=== PATIENT | female | born 1965 | race Caucasian/White ===

== ENCOUNTER 2017-03-30 17:02 | Inpatient (IN) | payer OTHER ==
[~2017-03-30] VITALS: Ht 165.1 cm; Wt 135.6 kg
[2017-03-30 17:12] VITALS: BP_SYST 138
[2017-03-30 18:09] LABS: HEMATOCRIT 48.6 % (36-48); HEMOGLOBIN 15.4 g/dL (12.0-16.0); MEAN CORPUSCULAR HEMOGLOBIN 27 pg (27-31); MEAN CORPUSCULAR HGB CONC 32 % (32-36); MEAN CORPUSCULAR VOLUME 85 fL (79.0-98.0); PLATELET COUNT (AUTO) 268 K/uL (130-430); RED BLOOD CELL COUNT(AUTO) 5.74 MIL/uL (4.2-6.2); RED CELL DISTRIBUTION WIDTH 15.5 % (9.0-15.0)
[2017-03-30 18:14] LABS: WHITE BLOOD COUNT (AUTO) 30.2 K/uL (4.8-10.8)
[2017-03-30] MEDS ORDERED: VANCOMYCIN HCL 1,000 MG in D5W 250 ML IV ONE (18:15)
[2017-03-30] MEDS ORDERED: ONDANSETRON HCL 4 MG/2 ML VIAL IVP ONE (18:15)
[2017-03-30] MEDS ORDERED: NS 1000 ML BAG IV ONE (18:15)
[2017-03-30] MEDS ORDERED: PIPERACILLIN/TAZO 3.38 GM in D5W 50 ML IV ONE (18:15)
[2017-03-30] MEDS ORDERED: MORPHINE 4 MG/ML INJ. SYRINGE IVP ONE (18:15)
[2017-03-30] MEDS ORDERED: PIPERACILLIN/TAZO 3.375 GM in D5W 50 ML IV ONE (18:20)
[2017-03-30 18:23] LABS: CALCIUM 9.4 mg/dL (8.4-11.0); CREATININE 0.96 mg/dL (0.55-1.30); POTASSIUM 4.1 mmol/L (3.5-5.1)
[2017-03-30 18:27] LABS: PROTHROMBIN TIME 10.9 SECS (9.5-12.5)
[2017-03-30] MEDS ORDERED: MORPHINE 4 MG/ML INJ. SYRINGE ONE (18:29)
[2017-03-30 18:35] LABS: TOTAL BILIRUBIN 0.6 mg/dL (0.0-1.0)
[2017-03-30 18:36] LABS: ALBUMIN 3.9 g/dL (3.4-4.8); TOTAL PROTEIN, SERUM 8.5 g/dL (6.4-8.3)
[2017-03-30 18:56] LABS: ATYPICAL LYMPHOCYTES % 0 % (0-0); BAND % (MANUAL) 13 % (0-6); BASOPHILS % (MANUAL) 0 % (0-2); EOSINOPHILS % (MANUAL) 0 % (0-7); LYMPHOCYTES % (MANUAL) 7 % (20-46); MONOCYTES % (MANUAL) 5 % (0-11)
[2017-03-30] MEDS ORDERED: GLIM2TAB2 PO (19:45)
[2017-03-30] MEDS ORDERED: GLU500 PO (19:45)
[2017-03-30] MEDS ORDERED: DEXTROSE 50% JECT 50 ML DISP.SYRIN IVP PRN (21:15)
[2017-03-30] MEDS: PIPERACILLIN/TAZO 3.375/DEX-IS 50 ML IV SCH (21:15)
[2017-03-30] MEDS ORDERED: ACETAMINOPHEN 325 MG TABLET PO PRN (21:15)
[2017-03-30 21:42] VITALS: BP_SYST 111
[2017-03-30] MEDS: NACL 0.9% 1,000 ML IV SCH (22:05)
[2017-03-30] MEDS: PIPERACILLIN/TAZOBACTAM 3.375 GM/VIAL (ZOSYN) IV ONE (23:54)
[2017-03-31] VITALS: BP_SYST 125
[2017-03-31] MEDS: PIPERACILLIN/TAZOBACTAM 3.375 GM/VIAL (ZOSYN) IV ONE (00:12)
[2017-03-31] MEDS: TEMAZEPAM 15 MG CAPSULE PO PRN ×2 (00:27→22:44)
[2017-03-31 04:00] VITALS: BP_SYST 118
[2017-03-31] MEDS: MORPHINE 2 MG/ML INJ. SYRINGE IVP PRN ×3 (04:35→20:44)
[2017-03-31] MEDS: PIPERACILLIN/TAZO 3.375/DEX-IS 50 ML IV SCH ×4 (06:03→17:05)
[2017-03-31] MEDS: INSULIN REGULAR, HUMAN 100 UNITS/ML, 10 ML VIAL (novoLIN R) SUBCUT PRN ×2 (06:14→12:22)
[2017-03-31 07:20] LABS: BASOPHILS % (AUTO) 0.2 % (0.0-2.0); EOSINOPHILS % (AUTO) 0.1 % (0.0-4.0); HEMATOCRIT 37.2 % (36-48); HEMOGLOBIN 12.4 g/dL (12.0-16.0); LYMPHOCYTES # (AUTO) 1.2 K/uL (1.0-5.5); LYMPHOCYTES % (AUTO) 7.2 % (20.5-51.5); MEAN CORPUSCULAR HEMOGLOBIN 29 pg (27-31); MEAN CORPUSCULAR HGB CONC 34 % (32-36); MEAN CORPUSCULAR VOLUME 85 fL (79.0-98.0); MONOCYTES # (AUTO) 0.5 K/uL (0.0-1.0); MONOCYTES % (AUTO) 3.2 % (1.7-9.3); NEUTROPHILS # (AUTO) 15.4 K/uL (1.8-7.7); NEUTROPHILS % (AUTO) 89.3 % (40.0-70.0); PLATELET COUNT (AUTO) 188 K/uL (130-430); RED BLOOD CELL COUNT(AUTO) 4.37 MIL/uL (4.2-6.2); RED CELL DISTRIBUTION WIDTH 14.9 % (9.0-15.0)
[2017-03-31 07:22] LABS: ALBUMIN 2.8 g/dL (3.4-4.8); CREATININE 0.81 mg/dL (0.55-1.30); POTASSIUM 3.9 mmol/L (3.5-5.1); TOTAL BILIRUBIN 0.6 mg/dL (0.0-1.0); TOTAL PROTEIN, SERUM 6.5 g/dL (6.4-8.3)
[2017-03-31 07:24] LABS: WHITE BLOOD COUNT (AUTO) 17.1 K/uL (4.8-10.8)
[2017-03-31 08:00] VITALS: BP_SYST 110
[2017-03-31] MEDS: GLIMEPIRIDE 2 MG TABLET PO SCH ×2 (08:46→20:44)
[2017-03-31] MEDS: NACL 0.9% 1,000 ML IV SCH ×2 (08:47→20:48)
[2017-03-31] MEDS ORDERED: ONDANSETRON HCL 4 MG/2 ML VIAL IVP PRN (10:15)
[2017-03-31] MEDS: VANCOMYCIN HCL 1,500 MG in NS 250 ML IV SCH ×2 (12:18→22:43)
[2017-03-31 13:08] VITALS: BP_SYST 118
[2017-03-31 18:37] VITALS: BP_SYST 116
[2017-03-31 20:00] VITALS: BP_SYST 106
[2017-04-01] VITALS (8 sets, daily range): BP systolic 99–122
[2017-04-01] MEDS: INSULIN REGULAR, HUMAN 100 UNITS/ML, 10 ML VIAL (novoLIN R) SUBCUT PRN ×3 (00:23→17:31)
[2017-04-01] MEDS: AMPICILLIN SODIUM/SULBACTAM NA 3 GM in NS 100 ML IV SCH ×4 (00:27→17:21)
[2017-04-01] MEDS: MORPHINE 4 MG/ML INJ. SYRINGE IVP PRN ×4 (02:28→23:53)
[2017-04-01] MEDS: NACL 0.9% 1,000 ML IV SCH ×3 (03:15→23:15)
[2017-04-01] MEDS: GLIMEPIRIDE 2 MG TABLET PO SCH ×2 (08:11→20:48)
[2017-04-01] MEDS: VANCOMYCIN HCL 1,500 MG in NS 250 ML IV SCH (11:29)
[2017-04-01] MEDS ORDERED: BISACODYL 5 MG TABLET.DR (DULCOLAX) PO ONE (12:45)
[2017-04-02] MEDS: VANCOMYCIN HCL 1,500 MG in NS 250 ML IV SCH ×3 (00:01→22:29)
[2017-04-02] MEDS: AMPICILLIN SODIUM/SULBACTAM NA 3 GM in NS 100 ML IV SCH ×4 (00:02→18:06)
[2017-04-02] MEDS: TEMAZEPAM 15 MG CAPSULE PO PRN ×2 (00:03→22:30)
[2017-04-02 04:11] VITALS: BP_SYST 105
[2017-04-02] MEDS: INSULIN REGULAR, HUMAN 100 UNITS/ML, 10 ML VIAL (novoLIN R) SUBCUT PRN ×2 (06:45→23:24)
[2017-04-02 07:18] LABS: BASOPHILS % (AUTO) 0.4 % (0.0-2.0); EOSINOPHILS # (AUTO) 0.1 K/uL (0.0-0.4); EOSINOPHILS % (AUTO) 1.6 % (0.0-4.0); HEMATOCRIT 36.2 % (36-48); HEMOGLOBIN 11.9 g/dL (12.0-16.0); LYMPHOCYTES # (AUTO) 1.5 K/uL (1.0-5.5); LYMPHOCYTES % (AUTO) 17.9 % (20.5-51.5); MEAN CORPUSCULAR HEMOGLOBIN 28 pg (27-31); MEAN CORPUSCULAR HGB CONC 33 % (32-36); MEAN CORPUSCULAR VOLUME 86 fL (79.0-98.0); MONOCYTES # (AUTO) 0.7 K/uL (0.0-1.0); MONOCYTES % (AUTO) 8.3 % (1.7-9.3); NEUTROPHILS # (AUTO) 5.9 K/uL (1.8-7.7); NEUTROPHILS % (AUTO) 71.8 % (40.0-70.0); PLATELET COUNT (AUTO) 165 K/uL (130-430); RED BLOOD CELL COUNT(AUTO) 4.23 MIL/uL (4.2-6.2); RED CELL DISTRIBUTION WIDTH 15.4 % (9.0-15.0); WHITE BLOOD COUNT (AUTO) 8.3 K/uL (4.8-10.8)
[2017-04-02 07:26] LABS: ALBUMIN 2.5 g/dL (3.4-4.8); CALCIUM 8.3 mg/dL (8.4-11.0); CREATININE 0.62 mg/dL (0.55-1.30); POTASSIUM 4.1 mmol/L (3.5-5.1); TOTAL BILIRUBIN 0.3 mg/dL (0.0-1.0); TOTAL PROTEIN, SERUM 6.6 g/dL (6.4-8.3)
[2017-04-02 09:00] VITALS: BP_SYST 124
[2017-04-02] MEDS: NACL 0.9% 1,000 ML IV SCH ×2 (09:08→23:19)
[2017-04-02] MEDS: GLIMEPIRIDE 2 MG TABLET PO SCH ×2 (09:08→22:30)
[2017-04-02 12:00] VITALS: BP_SYST 117
[2017-04-02 18:34] VITALS: BP_SYST 115
[2017-04-02 20:00] VITALS: BP_SYST 141
[2017-04-02] MEDS: MORPHINE 2 MG/ML INJ. SYRINGE IVP PRN (23:25)
[2017-04-02 23:46] VITALS: BP_SYST 114
[2017-04-03] MEDS: AMPICILLIN SODIUM/SULBACTAM NA 3 GM in NS 100 ML IV SCH ×2 (00:17→05:54)
[2017-04-03 04:17] VITALS: BP_SYST 112
[2017-04-03] MEDS: INSULIN REGULAR, HUMAN 100 UNITS/ML, 10 ML VIAL (novoLIN R) SUBCUT PRN (06:03)
[2017-04-03] MEDS: NACL 0.9% 1,000 ML IV SCH (06:15)
[2017-04-03 08:21] VITALS: BP_SYST 134
[2017-04-03] MEDS: GLIMEPIRIDE 2 MG TABLET PO SCH (09:25)
[2017-04-03 11:44] VITALS: BP_SYST 137
[2017-04-03 13:05] VITALS: BP_SYST 137
== END 2017-04-03 12:50 | disposition home or self-care (01) | DRG 872 ==
LOC: SED 17:02 → SMU 19:44
PROVIDERS: ADMIT Internal Medicine Hospice and Palliative Medicine; ATTEND Internal Medicine Hospice and Palliative Medicine
DX: A41.9 Sepsis, unspecified organism (principal); L03.116 Cellulitis of left lower limb; Z68.42 Body mass index [BMI] 45.0-49.9, adult; E11.9 Type 2 diabetes mellitus without complications; E66.01 Morbid (severe) obesity due to excess calories; I89.0 Lymphedema, not elsewhere classified; I89.1 Lymphangitis; Z90.710 Acquired absence of both cervix and uterus; Z86.010 Personal history of colon polyps
CPT/HCPCS: 36415; 80053; 80202-TC; 82962; 83605; 85007; 85025; 85027; 85610-TC; 85730-TC; 87040-TC; 93971; 96365; 96367; 96375; 99285; J0295; J1815; J2270; J2405; J2543; J3370; J7030; J7050; J7060

== ENCOUNTER 2018-04-02 14:20 | Inpatient (IN) | payer OTHER ==
[~2018-04-02] VITALS: Ht 165.1 cm; Wt 134.7 kg
[2018-04-02 14:20] VITALS: BP_SYST 153
[~2018-04-02 14:20] MED LIST: BUPIVACAINE LIPOSOME/PF 266 MG/20 ML VIAL INFIL ONE; CEFAZOLIN 2 GM IVPB PREMIX 50 ML IV ONE; DEXAMETHASONE SOD PHOSPHATE 4 MG/ML VIAL IVP ONE; GLIM2TAB2 PO; GLYCOPYRROLATE 0.2 MG/ML VIAL IJ ONE; KETOROLAC TROMETHAMINE 30 MG VIAL IVP ONE; LIDOCAINE 1% 10 MG/ML, 20 ML MDV INJ ONE; LR 1,000 ML IV.SOLN IV ONE; MIDAZOLAM HCL 5 MG/5 ML VIAL IVP ONE; NEOSTIGMINE METHYLSULFATE 1 MG/ML, 10 ML VIAL IVP ONE; NS IRRIG SOLN 1000 ML IR ONE; ONDANSETRON HCL 4 MG/2 ML VIAL IVP ONE; PROPOFOL 200MG/ 20ML VIAL (DIPRIVAN) IV ONE; ROCURONIUM BROMIDE 10 MG/ML (ZEMURON) IV ONE; SEVOFLURANE 15 MIN GAS INH ONE; SUCCINYLCHOLINE CHLORIDE 20 MG/ML(QUELICIN) IVP ONE; fentaNYL CITRATE 250 MCG/5 ML AMP IV ONE; fentaNYL CITRATE/PF 100 MCG/2 ML AMP IVP ONE
[2018-04-02] MEDS ORDERED: NACL 0.9% 1,000 ML IV ONE ×2 (14:45→15:45)
[2018-04-02] MEDS ORDERED: ONDANSETRON HCL 4 MG/2 ML VIAL IVP ONE (14:45)
[2018-04-02] MEDS ORDERED: MORPHINE 4 MG/ML INJ. SYRINGE IVP ONE (14:45)
[2018-04-02 15:18] LABS: BASOPHILS # (AUTO) 0.2 K/uL (0.0-0.2); BASOPHILS % (AUTO) 1.6 % (0.0-2.0); EOSINOPHILS % (AUTO) 0.1 % (0.0-4.0); HEMATOCRIT 49.2 % (36-48); HEMOGLOBIN 16.3 g/dL (12.0-16.0); LYMPHOCYTES # (AUTO) 0.9 K/uL (1.0-5.5); LYMPHOCYTES % (AUTO) 7.1 % (20.5-51.5); MEAN CORPUSCULAR HEMOGLOBIN 29 pg (27-31); MEAN CORPUSCULAR HGB CONC 33 % (32-36); MEAN CORPUSCULAR VOLUME 86 fL (79.0-98.0); MONOCYTES # (AUTO) 0.9 K/uL (0.0-1.0); MONOCYTES % (AUTO) 6.9 % (1.7-9.3); NEUTROPHILS # (AUTO) 11.2 K/uL (1.8-7.7); NEUTROPHILS % (AUTO) 84.3 % (40.0-70.0); PLATELET COUNT (AUTO) 241 K/uL (130-430); RED BLOOD CELL COUNT(AUTO) 5.71 MIL/uL (4.2-6.2); RED CELL DISTRIBUTION WIDTH 15.4 % (9.0-15.0); WHITE BLOOD COUNT (AUTO) 13.3 K/uL (4.8-10.8)
[2018-04-02 15:24] LABS: COLOR,URINE YELLOW (YELLOW); GLUCOSE,URINE 2+ (NEGATIVE); KETONES,URINE 3+ (NEGATIVE); NITRITE, URINE NEGATIVE (NEGATIVE); PH,URINE 5.5 (5.0-8.0); PROTEIN URINE TRACE (NEGATIVE); UROBILINOGEN,URINE 0.2 (0.2-1.0)
[2018-04-02 15:29] LABS: PROTHROMBIN TIME 10.1 SECS (9.5-12.5)
[2018-04-02] MEDS ORDERED: SITA100T7 PO (15:30)
[2018-04-02] MEDS ORDERED: GLU500 PO (15:30)
[2018-04-02] MEDS ORDERED: EMPA25TA PO (15:30)
[2018-04-02 15:37] LABS: BILIRUBIN,URINE NEGATIVE (NEGATIVE); BLOOD, URINE TRACE (NEGATIVE); CLARITY/URINE HAZY (CLEAR); LEUKOCYTE ESTERASE ,URINE 1+ (NEGATIVE)
[2018-04-02 15:39] LABS: BACTERIA,URINE FEW /HPF (None Seen)
[2018-04-02 15:40] LABS: MUCUS,URINE None Seen /LPF (None Seen); YEAST,URINE None Seen /HPF (None Seen)
[2018-04-02 16:00] LABS: CALCIUM 8.8 mg/dL (8.4-11.0); CREATININE 0.68 mg/dL (0.55-1.30); POTASSIUM 3.9 mmol/L (3.5-5.1)
[2018-04-02] MEDS ORDERED: PIPERACILLIN/TAZO 3.375 GM in NS 50 ML IV ONE (16:00)
[2018-04-02] MEDS ORDERED: VANCOMYCIN HCL 1,000 MG in NS 250 ML IV ONE (16:00)
[2018-04-02] MEDS ORDERED: PIPERACILLIN/TAZOBACTAM 3.375 GM/VIAL (ZOSYN) IV ONE (16:01)
[2018-04-02] MEDS ORDERED: VANCOMYCIN HCL 1000 MG/VIAL IV ONE (16:01)
[2018-04-02 16:04] LABS: ALBUMIN 3.7 g/dL (3.4-4.8); TOTAL BILIRUBIN 0.6 mg/dL (0.0-1.0)
[2018-04-02 16:51] VITALS: BP_SYST 105
[2018-04-02] MEDS ORDERED: MORPHINE 2 MG/ML INJ. SYRINGE IVP PRN ×2 (19:30→19:45)
[2018-04-02] MEDS ORDERED: ACETAMINOPHEN 325 MG TABLET PO PRN (19:45)
[2018-04-02] MEDS ORDERED: DEXTROSE 50% JECT 50 ML DISP.SYRIN IVP PRN (19:45)
[2018-04-02] MEDS ORDERED: ONDANSETRON HCL 4 MG/2 ML VIAL IVP PRN (19:45)
[2018-04-02] MEDS: D5NS 1,000 ML IV SCH (20:23)
[2018-04-02] MEDS: MORPHINE 4 MG/ML INJ. SYRINGE IVP PRN (20:24)
[2018-04-03 00:33] VITALS: BP_SYST 122
[2018-04-03] MEDS: MORPHINE 4 MG/ML INJ. SYRINGE IVP PRN ×3 (06:17→21:20)
[2018-04-03] MEDS: D5NS 1,000 ML IV SCH ×3 (06:17→19:37)
[2018-04-03 08:15] VITALS: BP_SYST 107
[2018-04-03] MEDS ORDERED: POLYMYXIN 500,000/BACIT.10,000 UNITS in NS IRR 1 L IR ONE (11:30)
[2018-04-03] MEDS ORDERED: MEPERIDINE HCL/PF 25 MG/ML DISP.SYRIN IVP PRN (12:00)
[2018-04-03] MEDS ORDERED: KETOROLAC TROMETHAMINE 30 MG VIAL IM ONE (12:00)
[2018-04-03] MEDS ORDERED: ONDANSETRON HCL 4 MG/2 ML VIAL IVP ONE (12:00)
[2018-04-03] MEDS ORDERED: NALOXONE HCL 0.4 MG/ML AMP (NARCAN) IVP ONE (12:00)
[2018-04-03] MEDS ORDERED: HYDROmorphone 1 MG INJ. 1 MG/ML AMPUL IVP PRN (12:00)
[2018-04-03] MEDS ORDERED: fentaNYL CITRATE/PF 100 MCG/2 ML AMP IVP PRN (12:00)
[2018-04-03] MEDS ORDERED: MIDAZOLAM HCL 5 MG/5 ML VIAL IVP PRN (12:00)
[2018-04-03] MEDS ORDERED: BUPIVACAINE LIPOSOME/PF 266 MG/20 ML VIAL INFIL ONE (12:17)
[2018-04-03] MEDS: ceFAZolin SODIUM 2 GM in D5W 100 ML IV SCH ×2 (14:00→21:20)
[2018-04-03 16:00] VITALS: BP_SYST 132
[2018-04-03 17:01] VITALS: BP_SYST 107
[2018-04-03] MEDS: metFORMIN HCL 500 MG TABLET PO SCH (17:32)
[2018-04-03] MEDS: GLIMEPIRIDE 2 MG TABLET PO SCH (17:32)
[2018-04-03 20:10] VITALS: BP_SYST 121
[2018-04-03] MEDS: INSULIN REGULAR, HUMAN 100 UNITS/ML, 10 ML VIAL (novoLIN R) SUBCUT PRN (23:26)
[2018-04-04 00:45] VITALS: BP_SYST 115
[2018-04-04] MEDS: D5NS 1,000 ML IV SCH ×3 (04:15→20:58)
[2018-04-04] MEDS: MORPHINE 4 MG/ML INJ. SYRINGE IVP PRN ×2 (04:17→10:34)
[2018-04-04] MEDS: ceFAZolin SODIUM 2 GM in D5W 100 ML IV SCH ×3 (06:12→20:59)
[2018-04-04] MEDS: metFORMIN HCL 500 MG TABLET PO SCH ×3 (06:13→17:02)
[2018-04-04] MEDS: INSULIN REGULAR, HUMAN 100 UNITS/ML, 10 ML VIAL (novoLIN R) SUBCUT PRN ×4 (06:22→23:30)
[2018-04-04 06:53] LABS: BASOPHILS # (AUTO) 0.1 K/uL (0.0-0.2); BASOPHILS % (AUTO) 0.5 % (0.0-2.0); EOSINOPHILS # (AUTO) 0.1 K/uL (0.0-0.4); EOSINOPHILS % (AUTO) 0.5 % (0.0-4.0); HEMATOCRIT 41.2 % (36-48); HEMOGLOBIN 13.6 g/dL (12.0-16.0); MEAN CORPUSCULAR HEMOGLOBIN 29 pg (27-31); MEAN CORPUSCULAR HGB CONC 33 % (32-36); MEAN CORPUSCULAR VOLUME 87 fL (79.0-98.0); MONOCYTES # (AUTO) 1.1 K/uL (0.0-1.0); MONOCYTES % (AUTO) 8.9 % (1.7-9.3); NEUTROPHILS # (AUTO) 8.6 K/uL (1.8-7.7); NEUTROPHILS % (AUTO) 73.1 % (40.0-70.0); PLATELET COUNT (AUTO) 203 K/uL (130-430); RED BLOOD CELL COUNT(AUTO) 4.76 MIL/uL (4.2-6.2); RED CELL DISTRIBUTION WIDTH 15.4 % (9.0-15.0); WHITE BLOOD COUNT (AUTO) 11.9 K/uL (4.8-10.8)
[2018-04-04 07:04] LABS: ALBUMIN 2.5 g/dL (3.4-4.8); CALCIUM 7.9 mg/dL (8.4-11.0); CREATININE 0.63 mg/dL (0.55-1.30); POTASSIUM 3.5 mmol/L (3.5-5.1); TOTAL BILIRUBIN 0.4 mg/dL (0.0-1.0)
[2018-04-04 08:05] VITALS: BP_SYST 121
[2018-04-04] MEDS: GLIMEPIRIDE 2 MG TABLET PO SCH ×2 (08:39→17:41)
[2018-04-04 11:29] VITALS: BP_SYST 99
[2018-04-04 15:08] VITALS: BP_SYST 124
[2018-04-04] MEDS: KETOROLAC TROMETHAMINE 15 MG VIAL IVP SCH ×2 (17:42→23:30)
[2018-04-04 20:00] VITALS: BP_SYST 130
[2018-04-04 23:30] VITALS: BP_SYST 107
[2018-04-05] MEDS: D5NS 1,000 ML IV SCH ×2 (04:40→13:20)
[2018-04-05] MEDS: MORPHINE 4 MG/ML INJ. SYRINGE IVP PRN ×4 (04:45→21:49)
[2018-04-05] MEDS: ceFAZolin SODIUM 2 GM in D5W 100 ML IV SCH (06:00)
[2018-04-05] MEDS: metFORMIN HCL 500 MG TABLET PO SCH (06:01)
[2018-04-05] MEDS: KETOROLAC TROMETHAMINE 15 MG VIAL IVP SCH ×2 (06:02→12:21)
[2018-04-05] MEDS: INSULIN REGULAR, HUMAN 100 UNITS/ML, 10 ML VIAL (novoLIN R) SUBCUT PRN (06:04)
[2018-04-05 08:00] VITALS: BP_SYST 122
[2018-04-05 08:07] LABS: ALBUMIN 2.3 g/dL (3.4-4.8); CALCIUM 8.1 mg/dL (8.4-11.0); CREATININE 0.63 mg/dL (0.55-1.30); TOTAL BILIRUBIN 0.3 mg/dL (0.0-1.0)
[2018-04-05] MEDS: GLIMEPIRIDE 2 MG TABLET PO SCH (08:10)
[2018-04-05 09:00] LABS: BASOPHILS % (AUTO) 0.2 % (0.0-2.0); EOSINOPHILS # (AUTO) 0.1 K/uL (0.0-0.4); EOSINOPHILS % (AUTO) 0.9 % (0.0-4.0); HEMATOCRIT 41.1 % (36-48); HEMOGLOBIN 13.5 g/dL (12.0-16.0); LYMPHOCYTES # (AUTO) 1.3 K/uL (1.0-5.5); LYMPHOCYTES % (AUTO) 15.9 % (20.5-51.5); MEAN CORPUSCULAR HEMOGLOBIN 29 pg (27-31); MEAN CORPUSCULAR HGB CONC 33 % (32-36); MEAN CORPUSCULAR VOLUME 87 fL (79.0-98.0); MONOCYTES # (AUTO) 0.8 K/uL (0.0-1.0); MONOCYTES % (AUTO) 10.1 % (1.7-9.3); NEUTROPHILS # (AUTO) 6.2 K/uL (1.8-7.7); NEUTROPHILS % (AUTO) 72.9 % (40.0-70.0); PLATELET COUNT (AUTO) 188 K/uL (130-430); RED BLOOD CELL COUNT(AUTO) 4.74 MIL/uL (4.2-6.2); RED CELL DISTRIBUTION WIDTH 15.4 % (9.0-15.0); WHITE BLOOD COUNT (AUTO) 8.4 K/uL (4.8-10.8)
[2018-04-05] MEDS: POTASSIUM CHLORIDE 20 MEQ TAB.PRT.SR PO SCH ×2 (10:18→13:18)
[2018-04-05 11:14] VITALS: BP_SYST 97
[2018-04-05] MEDS: ceFAZolin SODIUM 2 GM in D5W 50 ML IV SCH ×2 (13:19→21:52)
[2018-04-05 15:40] VITALS: BP_SYST 107
[2018-04-05 20:45] VITALS: BP_SYST 113
[2018-04-06] MEDS: INSULIN REGULAR, HUMAN 100 UNITS/ML, 10 ML VIAL (novoLIN R) SUBCUT PRN ×2 (00:25→05:32)
[2018-04-06] MEDS: MORPHINE 4 MG/ML INJ. SYRINGE IVP PRN ×3 (00:28→09:48)
[2018-04-06 02:20] VITALS: BP_SYST 112
[2018-04-06] MEDS: ceFAZolin SODIUM 2 GM in D5W 50 ML IV SCH (05:32)
[2018-04-06 06:32] LABS: CALCIUM 8.1 mg/dL (8.4-11.0); CREATININE 0.58 mg/dL (0.55-1.30); POTASSIUM 3.5 mmol/L (3.5-5.1)
[2018-04-06] MEDS: D5NS 1,000 ML IV SCH (06:58)
[2018-04-06 08:00] VITALS: BP_SYST 122
[2018-04-06 11:29] VITALS: BP_SYST 124
[2018-04-06 11:38] VITALS: BP_SYST 124
[2018-04-06 13:23] VITALS: BP_SYST 124
== END 2018-04-06 14:00 | disposition home or self-care (01) | DRG 354 ==
LOC: SED 14:20 → SMU 16:22
PROVIDERS: ADMIT Internal Medicine Hospice and Palliative Medicine; ATTEND Internal Medicine Hospice and Palliative Medicine
PROC: 0DBU0ZZ Excision of Omentum, Open Approach (ICD-10-PCS; 2018-04-03)
PROC: 0WUF0KZ Supplement Abdominal Wall with Nonautologous Tissue Substitute, Open Approach (ICD-10-PCS; principal; 2018-04-03 10:00)
DX: K43.0 Incisional hernia with obstruction, without gangrene (principal); N39.0 Urinary tract infection, site not specified; Z68.42 Body mass index [BMI] 45.0-49.9, adult; E86.0 Dehydration; I10 Essential (primary) hypertension; E66.01 Morbid (severe) obesity due to excess calories; K42.0 Umbilical hernia with obstruction, without gangrene; F03.90 Unspecified dementia, unspecified severity, without behavioral disturbance, psychotic disturbance, mood disturbance, and anxiety; E11.9 Type 2 diabetes mellitus without complications; Z79.899 Other long term (current) drug therapy; Z90.49 Acquired absence of other specified parts of digestive tract; Z90.710 Acquired absence of both cervix and uterus
CPT/HCPCS: 36415; 71045; 80048; 80053; 81000-TC; 82948; 82962; 83605; 85025; 85610-TC; 85730-TC; 87040-TC; 87081; 87086; 88302; 88305; 93005; 94010; 94760; 96361; 96365; 96375; 99285; C9290; J0330; J0690; J1100; J1815; J1885; J2001; J2250; J2270; J2405; J2543; J2704; J2710; J3010; J3370; J3490; J7030; J7042; J7060; J7120; Q4104

== ENCOUNTER 2022-04-29 00:29 | Emergency (ER) | payer BC, OTHER ==
[~2022-04-29] VITALS: Ht 165.1 cm; Wt 137.0 kg
[~2022-04-29 00:29] MED LIST changes: -BUPIVACAINE LIPOSOME/PF 266 MG/20 ML VIAL INFIL ONE; -CEFAZOLIN 2 GM IVPB PREMIX 50 ML IV ONE; -DEXAMETHASONE SOD PHOSPHATE 4 MG/ML VIAL IVP ONE; +EMPA25TA PO; +GLIM2TAB PO; -GLIM2TAB2 PO; +GLU500 PO; -GLYCOPYRROLATE 0.2 MG/ML VIAL IJ ONE; -KETOROLAC TROMETHAMINE 30 MG VIAL IVP ONE; -LIDOCAINE 1% 10 MG/ML, 20 ML MDV INJ ONE; -LR 1,000 ML IV.SOLN IV ONE; -MIDAZOLAM HCL 5 MG/5 ML VIAL IVP ONE; -NEOSTIGMINE METHYLSULFATE 1 MG/ML, 10 ML VIAL IVP ONE; -NS IRRIG SOLN 1000 ML IR ONE; -ONDANSETRON HCL 4 MG/2 ML VIAL IVP ONE; -PROPOFOL 200MG/ 20ML VIAL (DIPRIVAN) IV ONE; -ROCURONIUM BROMIDE 10 MG/ML (ZEMURON) IV ONE; -SEVOFLURANE 15 MIN GAS INH ONE; -SUCCINYLCHOLINE CHLORIDE 20 MG/ML(QUELICIN) IVP ONE; -fentaNYL CITRATE 250 MCG/5 ML AMP IV ONE; -fentaNYL CITRATE/PF 100 MCG/2 ML AMP IVP ONE
[2022-04-29 00:40] VITALS: BP_SYST 122
[2022-04-29] MEDS ORDERED: MORPHINE 4 MG INJ. 4 MG/ML VIAL IVP ONE ×2 (01:30→03:30)
[2022-04-29] MEDS ORDERED: ONDANSETRON HCL 4 MG/2 ML VIAL IVP ONE (01:30)
[2022-04-29] MEDS ORDERED: NACL 0.9% 1,000 ML IV ONE (01:30)
[2022-04-29] MEDS ORDERED: MORPHINE 4 MG INJ. 4 MG/ML VIAL ONE (02:01)
[2022-04-29 02:12] LABS: BILIRUBIN,URINE NEGATIVE (NEGATIVE); CLARITY/URINE CLEAR (CLEAR); COLOR,URINE YELLOW (YELLOW); GLUCOSE,URINE 2+ (NEGATIVE); KETONES,URINE TRACE (NEGATIVE); LEUKOCYTE ESTERASE ,URINE NEGATIVE (NEGATIVE); NITRITE, URINE NEGATIVE (NEGATIVE); PH,URINE 5.5 (5.0-8.0); PROTEIN URINE NEGATIVE (NEGATIVE); UROBILINOGEN,URINE 0.2 (0.2-1.0)
[2022-04-29 02:13] LABS: ANION GAP 9 (5-15); CALCIUM 8.9 mg/dL (8.4-11.0); CHLORIDE 103 mmol/L (98-107); CREATININE 0.89 mg/dL (0.55-1.30); GFR AFRICAN AMERICAN 84 mL/min (>90); GLUCOSE 161 mg/dL (70-99); POTASSIUM 3.8 mmol/L (3.5-5.1); SODIUM SERUM 138 mmol/L (136-145); UREA NITROGEN, BLOOD 17 mg/dL (8-21)
[2022-04-29 02:14] LABS: BLOOD, URINE TRACE (NEGATIVE)
[2022-04-29 02:23] LABS: BASOPHILS % (AUTO) 0.4 % (0.0-2.0); EOSINOPHILS # (AUTO) 0.3 K/uL (0.0-0.4); EOSINOPHILS % (AUTO) 2.6 % (0.0-4.0); HEMATOCRIT 42.8 % (36-48); HEMOGLOBIN 14.7 g/dL (12.0-16.0); LYMPHOCYTES # (AUTO) 1.8 K/uL (1.0-5.5); LYMPHOCYTES % (AUTO) 17.1 % (20.5-51.5); MEAN CORPUSCULAR HEMOGLOBIN 30 pg (27-31); MEAN CORPUSCULAR HGB CONC 34 % (32-36); MEAN CORPUSCULAR VOLUME 86 fL (79.0-98.0); MONOCYTES # (AUTO) 0.9 K/uL (0.0-1.0); MONOCYTES % (AUTO) 8.2 % (1.7-9.3); NEUTROPHILS # (AUTO) 7.7 K/uL (1.8-7.7); NEUTROPHILS % (AUTO) 71.7 % (40.0-70.0); PLATELET COUNT (AUTO) 204 K/uL (130-430); RED BLOOD CELL COUNT(AUTO) 4.98 MIL/uL (4.2-6.2); RED CELL DISTRIBUTION WIDTH 16.4 % (9.0-15.0); WHITE BLOOD COUNT (AUTO) 10.7 K/uL (4.8-10.8)
[2022-04-29 02:25] LABS: ALANINE AMINOTRANSFERASE 24 U/L (12-78); ALBUMIN 3.4 g/dL (3.4-4.8); ASPARTATE AMINOTRANSFERASE 20 U/L (10-37); LIPASE 129 U/L (73-393); TOTAL BILIRUBIN 0.4 mg/dL (0.0-1.0)
[2022-04-29 02:27] LABS: BACTERIA,URINE FEW /HPF (None Seen); WBC,URINE 0-3 /HPF (0-3)
[2022-04-29] MEDS ORDERED: TRAM50TA PO (04:23)
[2022-04-29 04:42] VITALS: BP_SYST 131
== END 2022-04-29 04:42 | disposition home or self-care (01) ==
LOC: SED 00:29
DX: N23 Unspecified renal colic (principal); N20.0 Calculus of kidney; Z79.899 Other long term (current) drug therapy; R11.0 Nausea; K59.00 Constipation, unspecified; E11.9 Type 2 diabetes mellitus without complications
CPT/HCPCS: 99285; 74176; 96374; 71045; 96361; 96375; 80053; 81000; 83690; 85025; 84484; 36415; 93005; 76376; 96376; J2405; J2270; J7030